=== PATIENT | male | born 1965 | race Caucasian/White ===

== ENCOUNTER 2024-01-18 07:22 | Emergency (ER) | payer OTHER, SELFPAY ==
[2024-01-18 07:33] VITALS: BP 186/95
[2024-01-18 07:55] LABS: % Basophils 0.3 % (0-2); % Eosinophils 0.3 % (0-6); % Immature Granulocytes 0.3 % (0-0.5); % Lymphocytes 11.3 % (20.5-51.1); % Monocytes 10.4 % (1.7-9.3); % Neutrophils 77.4 % (42.2-75.2); Absolute Lymphocytes 0.9 10^3/uL (1.2-3.4); Absolute Monocytes 0.8 10^3/uL (0.1-0.6); Hematocrit 43.3 % (39.0-52.0); Hemoglobin 15.1 g/dL (13.0-18.0); Mean Corp Hgb Conc. 34.9 g/dL (33.0-37.0); Mean Corpuscular Hgb 30.4 pg (27.0-31.0); Mean Corpuscular Volume 87.1 fL (80.0-94.0); Mean Platelet Volume 10.4 fL (7.4-10.4); Nucleated Red Blood Cells % 0 % (-); Platelet Count 281 10^3/uL (130-400); Red Blood Cell Count 4.97 10^6/uL (4.70-6.10); Red Cell Dist. Width 13.6 % (11.5-14.5); White Blood Cell Count 7.8 10^3/uL (4.8-10.8)
[2024-01-18 08:04] LABS: ALT (SGPT) 27 U/L (0-50); AST (SGOT) 33 U/L (17-59); Albumin 4.6 g/dl (3.5-5.0); Alkaline Phosphatase 96 U/L (38-126); Blood Urea Nitrogen 18 mg/dl (9-20); Calcium 9.5 mg/dl (8.4-10.2); Carbon Dioxide 26 mmol/L (22-30); Chloride 102 mmol/L (98-107); Glucose 121 mg/dl (70-99); Potassium 4.8 mmol/L (3.5-5.1); Sodium 135 mmol/L (135-145); Total Bilirubin 0.6 mg/dl (0.2-1.3); eGFR > 60.00
[2024-01-18 08:15] LABS: Urine Albumin 1+ (Neg - Trace); Urine Bilirubin 3+ (Negative); Urine Character Clear (Clear); Urine Glucose Negative (Negative); Urine Ketone Negative (Negative); Urine Leukocyte Negative (Negative); Urine Nitrite Positive (Negative); Urine Occult Blood 4+ (Negative); Urine Specific Gravity 1.025 (<1.030); Urine Urobilinogen 3+ (Neg - 1+)
[2024-01-18 08:19] LABS: Urine Color Orange
[2024-01-18 08:22] LABS: Urine Mucus Few; Urine Squamous Cell 0-2 /LPF (Few)
[2024-01-18 08:23] LABS: Urine Bacteria Few (Negative); Urine Red Blood Cell 30-40 /HPF (0-2); Urine White Cell 0-2 /HPF (0-5)
--- NOTE | 2024-01-18 09:05 | ED.GENMED ---
History of Present Illness
General
Chief Complaint: Flank Pain
Source: patient
Time Seen by Provider: 01/18/24 08:57
Travel History
Have you had any contact with someone who has COVID-19?: No
Do you have any symptoms of coronavirus? Fever > 100 degrees, chills, cough, shortness of breath, sore throat, loss of taste or smell, muscle aches, or headache?: No
History of Present Illness
History of Present Illness:
58-year-old male presents to the emergency room complaining right flank pain. Pain began 2 days ago and has been constant. It started to the right flank and radiates around to the right abdomen. He has had a kidney stone in the past. Patient has
had associated nausea and vomiting. He denies any fever, chills. He has taken Tylenol, Advil and Azo without any improvement in his pain. Movement does seem to make the pain worse.
Past History
Past History
ED Past Medical History: Psychiatric (anxiety)
ED Past Surgical History: Orthopedic
Social History
Tobacco: Non-smoker
Alcohol: Occasional
Personal:
Phy Exam
Physical Exam
Physical Exam:
General: Awake, Alert, Oriented X3. Appears uncomfortable
Vitals: Afebrile
Head: Atraumatic
Eyes: Pupils equal, EOMI
Throat: Airway intact, no exudates
Neck: Trachea midline
Lungs: Clear and equal b/l
Heart: Regular rate, no murmurs
Abd: Soft, Nontender, No pulsatile mass
Back: Right CVA tenderness to percussion
Neuro: Nonfocal
Skin: Warm, dry, no rash
Extremities: pulses equal b/l, no edema
Course
Orders/Labs/Results
Orders:
Orders
01/18/24 07:43
Complete Blood Count/With Diff Urgent
Comprehensive Metabolic Panel Urgent
Urinalysis Reflex To Culture Urgent
Date Specimen was Collected: 01/18/24
Time Specimen was Collected: 07:35
Urine Microscopic Reflex Cult Urgent
Urine Culture Urgent
JARRELL Source: U
Specimen Description:
Date Specimen was Collected: 01/18/24
Time Specimen was Collected: 07:35
01/18/24 09:04
CT Abd/pel Without Iv Or Oral Urgent
Comment:
Reason For Exam: r flank/abd pain
0.9% Sodium Chloride 1000 ml [Nss] 1,000 ml IV BOLUS
HYDROmorphone [Dilaudid] 0.5 mg IV NOW STA
Ketorolac [Toradol] 15 mg IV NOW STA
Ondansetron Injectable [Zofran] 4 mg IV NOW STA
01/18/24 10:03
HYDROmorphone [Dilaudid] 0.5 mg IV NOW STA
01/18/24 11:24
HYDROmorphone [Dilaudid] 1 mg IV NOW STA
01/18/24 12:46
Oxycodone [Roxicodone] 5 mg PO NOW STA
Abnormal Lab Results
01/18/24
07:43
Absolute Lymphs (auto) 0.9 L 10^3/uL
(1.2-3.4)
Absolute Monos (auto) 0.8 H 10^3/uL
(0.1-0.6)
Neutrophils % 77.4 H %
(42.2-75.2)
Lymphocytes % 11.3 L %
(20.5-51.1)
Monocytes % 10.4 H %
(1.7-9.3)
Glucose 121 H mg/dl
(70-99)
Ur Occult Blood Reflex 4+ A
(Negative)
Urine Nitrite (Reflex) Positive A
(Negative)
Urine Bilirubin 3+ A
(Negative)
Urine Urobilinogen 3+ A
(Neg - 1+)
Urine RBC 30-40 A /HPF
(0-2)
Urine Bacteria (Reflex) Few A
(Negative)
Urine Albumin (Reflex) 1+ A
(Neg - Trace)
01/18/24 07:43
01/18/24 07:43
Vital Signs
Initial and Last Documented VS:
Initial Vital Signs
Temp Pulse Resp BP Pulse Ox
98.0 F 56 16 186/95 98
01/18/24 07:33 01/18/24 07:33 01/18/24 07:33 01/18/24 07:33 01/18/24 07:33
Last Documented Vital Signs
Temp Pulse Resp BP Pulse Ox
98.0 F 72 18 136/72 99
01/18/24 07:33 01/18/24 14:55 01/18/24 14:55 01/18/24 14:55 01/18/24 14:55
MDM/Problems Addressed
Differential Diagnosis Includes:
pyelo, uti, kidney stone
MDM/Problems Addressed:
Patient presents complaining of right flank pain. Labs show normal white count. Normal renal function. Urine is positive for large amount of blood in the urine. Patient stable for discharge home. We will treat with oral analgesia, antiemetics
and Flomax. Patient or stands return should he develop a fever.
*Radiology
Radiology exam reviewed: radiology read reviewed
*Critical Care Note
Total Time (30-74mins, 75-104mins- exclusive of procedures): Not Applicable
ED Attending Note
-
Portions of this chart may have been created with voice recognition software.� Occasional wrong word or��sound alike� substitutions may have occurred due to the inherent limitations of voice recognition software.
Discharge Plan
Departure
Patient Disposition: Home (Routine Discharge)
Date of Disposition: 01/18/24
Time of Disposition: 14:40
Patient with high blood pressure during this ER visit?: Yes
Condition: Good
Discharge Problem:
Kidney stone on right side
Instructions: Kidney Stones (DC), BLOOD PRESSURE
Prescriptions:
New
tamsulosin [Flomax] 0.4 mg capsule
0.4 mg PO DAILY Qty: 14 0RF
oxycodone 5 mg tablet
5 mg PO Q6H PRN (Reason: Pain) Qty: 14 0RF
ondansetron 4 mg tablet,disintegrating
4 mg PO Q8H PRN (Reason: nausea and vomiting) Qty: 12 0RF
No Action
No Current Medications
ondansetron HCl 4 MG tablet
4 mg PO Q8HPRN PRN (Reason: nausea) Qty: 6 0RF
levofloxacin 500 MG tablet
500 mg PO DAILY 4 Days 0RF
Referrals:
Antolin Meléndez MD [Family Provider] -
Marito Richards MD [Active] -
Activity Restrictions/Additional Instructions:
You can take 600mg of ibuprofen and 1000mg of Tylenol every 6 hours for pain. Please call Dr. Richards's office to schedule an appointment. Return if you develop a fever before passing the stone.
Interventions
Interventions:
*Risk Screen - Suicide Last Done: 01/18/24 09:15
*General Assessment Last Done: 01/18/24 09:15
*Neglect/Abuse Screening Last Done: 01/18/24 09:15
ED- Fall Risk Assessment Last Done: 01/18/24 14:55
*ED COVID-19 Vaccine History Last Done: 01/18/24 07:33
*Nursing Disposition Last Done: 01/18/24 14:55
SH-Mvryug-Ptybutnrbj Assessment Last Done: 01/18/24 09:15
ED-Male Genitourinary Assessment Last Done: 01/18/24 09:15
Discharge Date and Time
Discharge Date/Time: 01/18/24 14:56
Print Language: GHANAIAN
[2024-01-18] MEDS: ZOFRAN 4 MG IV (09:15)
[2024-01-18] MEDS: DILAUDID 0.5 MG IV ×2 (09:15→10:08)
[2024-01-18] MEDS: NSS 1000 IV (09:15)
[2024-01-18] MEDS: TORADOL 15 MG IV (09:16)
[2024-01-18 09:20] VITALS: BMI 26.7
[2024-01-18 10:07] VITALS: BP 189/95
[2024-01-18] MEDS: DILAUDID 1 MG IV (11:39)
[2024-01-18] MEDS: ROXICODONE 5 MG PO (13:05)
[2024-01-18 14:55] VITALS: BP 136/72
== END 2024-01-18 14:56 | disposition home or self-care (01) ==
LOC: EMR 07:22
PROVIDERS: Emergency Medicine; EMERGENCY PHYSICIAN Emergency Medicine; FAMILY PHYSICIAN Family Medicine
DX: N13.2 Hydronephrosis with renal and ureteral calculous obstruction (principal); Z87.442 Personal history of urinary calculi
CPT/HCPCS: 99284; 96374; 96375 ×2; 96361; 96376; 74176; 80053; 81003; 81015; 85025; 87086

== ENCOUNTER 2024-01-22 06:19 | Day surgery (SDC) | payer OTHER, SELFPAY ==
[2024-01-22] VITALS (7 sets, daily range): BP systolic 147–163; BP diastolic 90–114; BMI 26.2
[2024-01-22] MEDS: NORMOSOL-R 1000 IV (09:26)
[2024-01-22] MEDS: Pyridium 200 MG PO (11:17)
[2024-01-22] MEDS: FLOMAX 0.400000000000000022 MG PO (11:17)
[2024-01-25 00:11] LABS: Stone Analysis Mass 4 mg
== END 2024-01-22 12:05 | disposition home or self-care (01) ==
LOC: SDS 06:19
PROVIDERS: ATTENDING PHYSICIAN Specialist; FAMILY PHYSICIAN Family Medicine
DX: N20.1 Calculus of ureter (principal); Q62.5 Duplication of ureter
CPT/HCPCS: 52356; 74420; 76000; 82365; 93005; C1758; C1894; C2617

== ENCOUNTER → 2025-09-12 16:19 | Outpatient (REF) | payer OTHER, SELFPAY | LOC: REG 16:19 | PROVIDERS: ATTENDING PHYSICIAN Specialist | DX: N20.1 Calculus of ureter (principal) | CPT/HCPCS: 74018 ==